=== PATIENT | male | born 1985 | race Caucasian/White ===

== ENCOUNTER 2023-06-17 15:09 | Inpatient (IN) | payer OTHER ==
[2023-06-17 15:29] VITALS: BMI 20.8
[2023-06-17] MEDS ORDERED: NALOXONE HCL (KLOXXADO) 8 MG SPRAY NS PRN (19:16)
[2023-06-17] MEDS ORDERED: IBUPROFEN 400 MG TABLET (FP) PO PRN (19:16)
[2023-06-17] MEDS ORDERED: ACETAMINOPHEN 325 MG TABLET (FP) PO PRN (19:16)
[2023-06-17] MEDS ORDERED: ONDANSETRON *ODT* 4 MG TABLET SL PRN (19:16)
[2023-06-17] MEDS ORDERED: guaiFENesin 600 MG TABLET.ER (FP) PO PRN (19:16)
[2023-06-17] MEDS ORDERED: BISMUTH SUBSALICYLATE 524 MG/30 ML PO PRN (19:16)
[2023-06-17] MEDS ORDERED: MAG HYDROX/AL HYDROX/SIMETH 30 ML UNIT-DOSE CUP PO PRN (19:16)
[2023-06-17] MEDS ORDERED: DICYCLOMINE HCL 10 MG CAPSULE PO PRN (19:16)
[2023-06-17] MEDS ORDERED: BENZOCAINE/MENTHOL (CHLORASEPTIC ) LOZENGE MM PRN (19:16)
[2023-06-17] MEDS ORDERED: P-EPHED 60MG/TRIPROLIDI 2.5MG TABLET PO PRN (19:16)
[2023-06-17] MEDS ORDERED: BENZONATATE 200 MG CAPSULE PO PRN (19:16)
[2023-06-17] MEDS ORDERED: POLYETHYLENE GLYCOL (HEALTHYLAX) 3350 17 GM PACKET PO PRN (19:16)
[2023-06-17] MEDS ORDERED: LOPERAMIDE HCL 2 MG CAPSULE PO PRN (19:16)
[2023-06-17] MEDS ORDERED: NALOXONE HCL 0.4 MG/ML VIAL IM PRN (19:16)
[2023-06-17] MEDS ORDERED: MAGNESIUM HYDROX 2400MG/30ML ORAL SUSPENSION 30 ML CUP PO PRN (19:16)
[2023-06-17] MEDS ORDERED: IBUPROFEN 600 MG TABLET (FP) PO PRN (19:16)
[2023-06-17] MEDS: cloNIDine HCL 0.1 MG TABLET PO PRN (20:13)
[2023-06-17] MEDS: diazePAM 5 MG TABLET PO ONE (20:13)
[2023-06-17] MEDS: methaDONE HCL 10 MG TABLET (FOR DETOX USE ONLY) PO ONE (22:33)
[2023-06-17] MEDS: diazePAM 5 MG TABLET PO SCH (22:34)
[2023-06-17] MEDS: MELATONIN 5 MG TABLETS PO SCH (22:34)
[2023-06-17] MEDS: THIAMINE HCL 100 MG TABLET (FP) PO SCH (22:34)
[2023-06-18] MEDS: PRENATAL VITAMINS W/ FOLIC ACID TABLET (FP) PO SCH (10:14)
[2023-06-18 10:59] LABS: POTASSIUM 3.8 mmol/L (3.5-5.1)
[2023-06-18 11:02] LABS: HEMATOCRIT 41.4 % (35.4-49); HEMOGLOBIN 13.8 GM/dL (11.7-16.9); MCH 27.9 pg (25.7-33.7); MCHC 33.3 g/dl (32.0-35.9); MEAN CELL VOLUME 83.8 fl (80-96); MEAN PLT VOLUME 7.4 fl (7.5-11.1); PLATELET COUNT 214 10^3/uL (134-434); RBC 4.94 M/mm3 (4.00-5.60); RDW 15.1 % (11.9-15.9); WHITE BLOOD COUNT 6.7 K/mm3 (4.0-10.0)
[2023-06-18 11:03] LABS: ALBUMIN 3.6 g/dl (3.4-5.0); CALCIUM 8.9 mg/dL (8.5-10.1)
[2023-06-18 11:06] LABS: CREATININE 0.7 mg/dL (0.55-1.3)
[2023-06-18 11:08] LABS: BILIRUBIN,TOTAL 0.2 mg/dL (0.2-1); TOT PROT 6.9 g/dl (6.4-8.2)
[2023-06-18] MEDS: NICOTINE POLACRILEX 2 MG GUM BUC PRN (16:51)
[2023-06-19] MEDS: diazePAM 5 MG TABLET PO SCH (05:32)
[2023-06-19] MEDS: METHOCARBAMOL 500 MG TABLET PO PRN (10:19)
[2023-06-19] MEDS: methaDONE HCL 10 MG TABLET (FOR DETOX USE ONLY) PO ONE (10:20)
[2023-06-19] MEDS: diazePAM 5 MG TABLET PO PRN (17:42)
[2023-06-20] MEDS: diazePAM 5 MG TABLET PO SCH (05:29)
[2023-06-21] MEDS: diazePAM 5 MG TABLET PO ONE (05:41)
[2023-06-21] MEDS: methaDONE HCL 10 MG TABLET (FOR DETOX USE ONLY) PO ONE (10:09)
[2023-06-21 20:50] VITALS: RESP 16
[2023-06-22 05:56] VITALS: BP 132/83; PULSE 86; TEMP 97.6
== END 2023-06-22 09:25 | disposition home or self-care (01) | DRG 773 ==
LOC: YASAS 15:09 → Y3N 19:40
PROVIDERS: ADMIT Allergy & Immunology; ATTEND Surgery
PROC: HZ2ZZZZ Detoxification Services for Substance Abuse Treatment (ICD-10-PCS; principal; 2023-06-17)
DX: F11.23 Opioid dependence with withdrawal (principal); F13.20 Sedative, hypnotic or anxiolytic dependence, uncomplicated; F14.20 Cocaine dependence, uncomplicated; F17.210 Nicotine dependence, cigarettes, uncomplicated; F19.24 Other psychoactive substance dependence with psychoactive substance-induced mood disorder; R73.9 Hyperglycemia, unspecified; Z63.4 Disappearance and death of family member; Z28.310 Unvaccinated for COVID-19; Z28.9 Immunization not carried out for unspecified reason
CPT/HCPCS: 0241U-QW; 36415; 80053; 85027; 86780; 87635; 93005; 93010